=== PATIENT | female | born 1955 | race Caucasian/White ===

== ENCOUNTER 2017-09-13 08:36 | Emergency (ER) | payer BC ==
--- NOTE | 2017-09-13 08:56 | ED ---
Throat Pain/Nasal Congestion - HPI Summary HPI Summary: 62-year-old female presents with head injury 2 days ago. She states she tripped and struck her right side of her face. She states she feels like her jaw is dislocated. She relocated she felt a pop. States since then she is having jaw pain feels like her jaw is a little off center. She denies any loose teeth or fractured teeth. She denies any pain with eye movement. She has had bruising below her eyes and on her jaw. She denies any loss consciousness. She denies any nausea vomiting. She did admit to some dizziness that has resolved. He still has a mild headache. She denies any neck pain. She has abrasions to her knee and her hand. She is full range of motion of her knee and hand. She denies any other injury. - History of Current Complaint Chief Complaint: EDHeadInjury Time Seen by Provider: 09/13/17 08:47 - Allergies/Home Medications Allergies/Adverse Reactions: Allergies Allergy/AdvReac Type Severity Reaction Status Date / Time No Known Allergies Allergy Verified 09/13/17 08:37 PMH/Surg Hx/FS Hx/Imm Hx Endocrine/Hematology History: Denies: Hx Anticoagulant Therapy, Hx Diabetes Cardiovascular History: Denies: Hx Coronary Artery Disease, Hx Hypertension, Hx Pacemaker/ICD Respiratory History: Denies: Hx Asthma, Hx Chronic Obstructive Pulmonary Disease (COPD) History: Denies: Hx Renal Disease Musculoskeletal History: Reports: Hx Arthritis - LOW BACK, KNEE, SHOULDER Sensory History: Denies: Hx Hearing Aid Neurological History: Reports: Hx Migraine - Hx OF, LAST x WAS SUMMER 2012 Psychiatric History: Reports: Hx Anxiety - LOW BACK, Hx Substance Abuse - ETOH, SOBER X14 YEARS Denies: Hx Panic Disorder - Surgical History Surgery Procedure, Year, and Place: 1987 LEFT KNEE SCOPE FABY Hx Anesthesia Reactions: No Infectious Disease History: Yes Infectious Disease History: Denies: Traveled Outside the [place] in Last 30 Days - Family History Known Family History: Positive: Hypertension - Social History Alcohol Use: None Substance Use Type: Reports: None Hx Tobacco Use: Yes Smoking Status (MU): Never Smoked Tobacco Type: Cigars Amount Used/How Often: occasionally CIGAR Have You Smoked in the Last Year: Yes Review of Systems Negative: Fever Positive: Other - jaw pain Negative: Chest Pain Negative: Shortness Of Breath Positive: Headache All Other Systems Reviewed And Are Negative: Yes Physical Exam Triage Information Reviewed: Yes Vital Signs On Initial Exam: Initial Vitals Temp Pulse Resp BP Pulse Ox 98.2 F 74 16 128/60 97 09/13/17 08:39 09/13/17 08:39 09/13/17 08:39 09/13/17 08:39 09/13/17 08:39 Vital Signs Reviewed: Yes Appearance: Positive: Well-Appearing Skin: Positive: Warm, Dry Head/Face: Positive: Normal Head/Face Inspection Eyes: Positive: Normal, EOMI, DIANA, Conjunctiva Clear ENT: Positive: Normal ENT inspection, Pharynx normal, TMs normal, Other - tenderness right side jaw and infraorbital, full ROM jaw Dental: Positive: Other - no loose teeth. Negative: Dental Fracture @ Neck: Positive: Supple, Nontender, No Lymphadenopathy, Other: - nontender neck Respiratory/Lung Sounds: Positive: Clear to Auscultation, Breath Sounds Present Cardiovascular: Positive: Normal, RRR Abdomen Description: Positive: Nontender, Soft Bowel Sounds: Positive: Present Musculoskeletal: Positive: Normal Neurological: Positive: Sensory/Motor Intact, Alert, Oriented to Person Place, Time, CN Intact II-III Psychiatric: Positive: Normal Diagnostics - Vital Signs Vital Signs Temp Pulse Resp BP Pulse Ox 09/13/17 08:39 98.2 F 74 16 128/60 97 - Laboratory Lab Statement: Any lab studies that have been ordered have been reviewed, and results considered in the medical decision making process. - Radiology maxillary Xray Interpretation: No Acute Changes Radiology Interpretation Completed By: Radiologist EENT Course/Dx - Course Course Of Treatment: 62-year-old female presents with head injury 2 days ago. She states she tripped and struck her right side of her face. She states she feels like her jaw is dislocated. She relocated she felt a pop. States since then she is having jaw pain feels like her jaw is a little off center. She denies any loose teeth or fractured teeth. She denies any pain with eye movement. She has had bruising below her eyes and on her jaw. She denies any loss consciousness. She denies any nausea vomiting. She did admit to some dizziness that has resolved. He still has a mild headache. She denies any neck pain. She has abrasions to her knee and her hand. She is full range of motion of her knee and hand. She denies any other injury. On exam has full range of motion of jaw. Normal neuro exam. According to [place] CT rules does not need any head imaging. will get imaging of face. maxillaryfacial normal. will have follow up with dentist. will have eat soft foods. will have follow up with primary about head injury. patient understand and agrees with plan. - Differential Diagnoses Differential Diagnoses: Other - jaw dislocation, facial fracture, concussion - Diagnoses Provider Diagnoses: Fall, Head injury, Jaw pain Discharge - Sign-Out/Discharge Documenting (check all that apply): Discharge - Discharge Plan Condition: Good Disposition: HOME Patient Education Materials: Head Injury (ED), Temporomandibular Disorder (ED) Referrals: Katt Valdez MD [Primary Care Provider] - Additional Instructions: Place ice on area as needed Take Tylenol for headache every 6 hours Modify activities as tolerated Follow up with primary within 5 days Eat soft foods Follow up with dentist Avoid chewing gum Return to ED if develop vomiting, severe headache, change in behavior, or any new or worsening symptoms - Billing Disposition and Condition Condition: GOOD Disposition: HOME
--- NOTE | 2017-09-13 09:18 | RAD ---
HISTORY: Left facial injury COMPARISONS: None TECHNIQUE: Multiple contiguous axial CT scans were obtained of the face without intravenous contrast, with coronal and sagittal multiplanar reformations. FINDINGS: BONES: There is no displaced fracture or dislocation. The orbital rim is intact. The zygomatic arch is intact. The pterygoid plates are intact. 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 ORBITS: The globes are round. The optic nerves are symmetric. The extraocular musculature is normal. There is no post septal or intraconal inflammatory change. There is no retrobulbar hematoma. PARANASAL SINUSES: The nasal septum is deviated to the right with right-sided spurring. BRAIN AND SOFT TISSUE: Unremarkable. OTHER: None. IMPRESSION: NO FACIAL FRACTURE
--- OUTSIDE RECORDS SUMMARY | 2017-09-13 09:32 | XMS REPORT ---
:1955 External Reference #:[id number] Author Organization [facility] Address [address] [place] [address] Phone [phone] Care Team Providers Name Role Phone Katt Valdez MD Primary Care Physician Unavailable Payers Type Date Identification Numbers Payment Provider Subscriber Commercial Effective: Policy Number: BS Facets Zandra Appiah 2017 [id number] PayID: [id number] [address] [address] [place] [address] Problems Date Description Provider Status Onset: 02/14/2012 Hyperlipidemia Penelope Stone M.D., FACP Active Onset: 05/18/2016 Full thickness rotator cuff tear Natalie Estrada MD Active Onset: 03/03/2016 Closed fracture of phalanx of foot Natalie Estrada MD Active Onset: 03/03/2016 Disorder of shoulder Natalie Estrada MD Active Onset: 03/03/2016 Injury of shoulder region Natalie Estrada MD Active Family History Date Family Member(s) Problem(s) Comments General Diabetes General Leukemia Social History Type Date Description Comments Lives With Alone Occupation Currently Working ETOH Use Denies alcohol use Smoking Patient is a former smoker Exercise Type/Frequency Exercises sporadically Allergies, Adverse Reactions, Alerts Date Description Reaction Status Severity Comments 02/14/2012 NKDA active Medications Medication Date Status Form Strength Qnty SIG Indications Ordering Provider Ibuprofen Active Tablets 600mg 120tabs take 1 Dirk 018 tab by kemal Lopez M.D. every 8 hours for pain. Ibuprofen /0 Active Capsules 200mg 3 tabs q Unknown 000 am Diclofenac Hx Tablets DR 75mg 60tabs take 1 S46.101A Zaneb Sodium 016 - tablet MD Sean twice a 018 day with food [place]-3 CF /0 Hx Capsules 1000mg Unknown 000 - 018 Multi For Her 0 Hx Capsules 1 po qd Unknown 50+ 000 - 018 Medications Administered in Office Medication Date Status Form Strength Qnty SIG Indications Ordering Provider Triamcinolone 01/26/ Administered Injection Zaneb (Kenalog) 2015 MD Sean Immunizations CPT Code Status Date Vaccine Lot # [id number] Given 06/13/2012 Fluvirin Im 3Yrs And Older [id number] Given 02/10/2009 Tdap - Tetanus/Diptheria/Acellular Pertussis Vital Signs Date Vital Result Comment 09/03/2017 Height 73 inches 6'1" Weight 257.00 lb BP Systolic 124 mmHg BP Diastolic 64 mmHg Respiratory Rate 20 /min Body Temperature 98.4 F Pain Level 8 BMI (Body Mass Index) 33.9 kg/m2 05/18/2016 Height 73 inches 6'1" Weight 220.00 lb Respiratory Rate 20 /min Pain Level 2 BMI (Body Mass Index) 29.0 kg/m2 04/18/2016 Height 73 inches 6'1" Weight 220.00 lb Pain Level 7 BMI (Body Mass Index) 29.0 kg/m2 03/03/2016 Height 73 inches 6'1" Weight 220.00 lb Respiratory Rate 16 /min Pain Level 16 BMI (Body Mass Index) 29.0 kg/m2 01/27/2016 Height 73 inches 6'1" Weight 220.00 lb Pain Level 10 BMI (Body Mass Index) 29.0 kg/m2 10/28/2015 Height 73 inches 6'1" Weight 220.00 lb Respiratory Rate 16 /min Pain Level 10 BMI (Body Mass Index) 29.0 kg/m2 06/13/2012 Height 73 inches 6'1" Weight 235.25 lb Heart Rate 60 /min BP Systolic Sitting 120 mmHg BP Diastolic Sitting 60 mmHg BMI (Body Mass Index) 31.0 kg/m2 02/14/2012 Height 73 inches 6'1" Weight 222.50 lb Heart Rate 68 /min BP Systolic Sitting 130 mmHg BP Diastolic Sitting 68 mmHg BMI (Body Mass Index) 29.4 kg/m2 Results Test Date Test Result H/L Range Note Comp Metabolic Panel 10/21/2012 Sodium 138 mmol/L 133-145 Potassium 3.8 mmol/L 3.5-5.0 Chloride 106 mmol/L 101-111 Co2 Carbon Dioxide 28.0 mmol/L 22-32 Anion Gap 4.0 mmol/L 2-11 Glucose 102 mg/dL High 70-100 Blood Urea Nitrogen 18 mg/dL 6-24 Creatinine 0.90 mg/dL 0.50-1.40 BUN/Creatinine Ratio 20.0 8-20 Calcium 9.1 mg/dL 8.1-9.9 Total Protein 6.9 g/dL 6.2-8.1 Albumin 4.2 g/dL 3.6-5.4 Globulin 2.7 g/dL 2-4 Albumin/Globulin Ratio 1.6 1-3 Total Bilirubin 0.9 mg/dL 0.4-1.5 Alkaline Phosphatase 59 U/L 30-110 Alt 18 U/L 14-54 Ast 24 U/L 12-42 Egfr Non- 64.8 >60 Egfr 83.3 >60 1 Urinalysis 10/21/2012 Urine Color Yellow Urine Appearance Clear Urine Specific [place] 1.018 1.010-1.030 Urine Esterase Negative Negative Urine Nitrate Negative Negative Urine Urobilinogen Negative E.U./dL Negative Urine Protein Negative mg/dL Negative Urine pH 7.0 5-9 Urine Blood Negative Negative Urine Ketones Negative mg/dL Negative Urine Bilirubin Negative Negative Urine Glucose Negative mg/dL Negative Laboratory test finding 10/21/2012 Inr 0.80 Low 0.87-0.97 Activated Partial Thrombo Time 27.3 seconds 22.18-37.18 Vitamin D, 25 Hydroxy 02/20/2012 25-Hydroxy Vitamin D2 <4.0 ng/mL () 25-Hydroxy Vitamin D3 32 ng/mL () 25-Hydroxy Vitamin D Total 32 ng/mL () 2 Comp Metabolic Panel 02/20/2012 Sodium 139 mmol/L 135-145 Potassium 4.2 mmol/L 3.5-5.0 Chloride 108 mmol/L 101-111 Co2 (Carbon Dioxide) 26.0 mmol/L 22-32 Anion Gap 5.0 mmol/L 2-11 3 Glucose 91 mg/dL 70-100 BUN 12 mg/dL 6-24 Creatinine 0.8 mg/dL 0.50-1.40 One Over Creatinine 1.25 BUN/Creatinine Ratio 15.0 8-20 Calcium 9.2 mg/dL 8.1-9.9 Total Protein 6.4 GM/DL 6.2-8.1 Albumin 4.0 GM/DL 3.6-5.4 Globulin 2.4 GM/DL 2-4 Albumin/Globulin Ratio 1.7 1-3 Bilirubin Total 0.9 mg/dL 0.4-1.5 4 Alkaline Phosphatase 66 U/L 30-110 Alt (SGPT) 14 U/L 14-54 Ast (Sgot) 20 U/L 12-42 eGFR Non- 74.5 > 60 eGFR 95.8 > 60 5 Laboratory test finding 02/20/2012 TSH 0.33 MIU/ML Low 0.34-5.60 1 Because ethnic data is not always readily available, this report includes an eGFR for both -Americans and non- Americans. The National Kidney Disease Education Program (NKDEP) does not endorse the use of the MDRD equation for patients that are not between the ages of 18 and 70, are , have extremes of body size, muscle mass, or nutritional status, or are non- or non-. According to the National Kidney Foundation, irrespective of diagnosis, the stage of the disease is based on the level of kidney function: Stage Description GFR(mL/min/1.73 m(2)) 1 Kidney damage with normal or decreased GFR 90 2 Kidney damage with mild decrease in GFR 60-89 3 Moderate decrease in GFR 30-59 4 Severe decrease in GFR 15-29 5 Kidney failure <15 (or dialysis) 2 -- REFERENCE VALUE -- 25-HYDROXY D TOTAL (D2+D3) Optimum levels in the normal population are 25-80 Test Performed by: [facility] [place] [address] Marketing Systems Manager: Babak Garcia III, M.D. 3 Anion gap measurement may be of limited value in the presence of any alkalosis, especially in a combined acid base disorder. . 4 A metabolite of Naproxen, O-desmethylnaproxen, has been shown to interfere with the Jenalexiaik-Stagecoach method for measuring total bilirubin. Samples from patients who have taken Naproxen have shown spurious elevation in total bilirubin levels. 5 Because ethnic data is not always readily available, this report includes an eGFR for both -Americans and non- Americans. The National Kidney Disease Education Program (NKDEP) does not endorse the use of the MDRD equation for patients that are not between the ages of 18 and 70, are , have extremes of body size, muscle mass, or nutritional status, or are non- or non-. According to the National Kidney Foundation, irrespective of diagnosis, the stage of the disease is based on the level of kidney function: Stage Description GFR(mL/min/1.73 m(2)) 1 Kidney damage with normal or decreased GFR 90 2 Kidney damage with mild decrease in GFR 60-89 3 Moderate decrease in GFR 30-59 4 Severe decrease in GFR 15-29 5 Kidney failure <15 (or dialysis) Procedures Date CPT Code Description Status 01/27/2016 50813 Inject/Drain Joint/Bursa Major Completed 03/18/2012 04399 Rad Exam; Ankle Comp Completed 03/18/2012 65131 Rad Exam; Ankle Limited Completed 02/20/2012 Bone Mineral Density Test Completed 02/06/2012 53401 Rad Exam; Ankle Comp Completed 01/12/2012 43037 CLSD TX Distal Fib FX (Lateral Malleolus) w/o Completed manipulation 07/22/2009 Colonoscopy Completed 02/19/2009 Mammogram Completed 02/10/2009 10723 EKG Tracing & Interpretation Completed Encounters Type Date Location Provider CPT E/M Dx Office Visit 05/18/2016 [facility] [place] [address] S46.101A 2:15p C.M.A. M75.121 Office Visit 04/18/2016 10:00a [facility] [place] [address] S46.101A C.M.A. M75.41 M75.21 Office Visit 03/03/2016 9:30a [facility] [place] [address] S46.101A C.M.A. M75.41 S92.514A M75.21 Office Visit 01/27/2016 9:30a [facility] [place] [address] S46.101A C.M.A. M75.41 M75.21 Office Visit 10/28/2015 8:30a [facility] [place] [address] S46.101A C.M.AEstrada M75.41 M75.21 Office Visit 06/13/2012 4:00p [facility] Penelope Stone M.D., 14235 719.45 - [place] FACP 724.2 V04.81 Office Visit 05/13/2012 9:30a [facility], 44327 823.21 CRc [place] Office Visit 02/14/2012 3:20p [facility] Penelope Stone M.D., 20217 823.21 - [place] FACP 733.90 268.9 Office Visit 03/09/2009 1:15p DO Not Use [facility] Penelope Stone, 75742 272.4 M.D., FACP Office Visit 02/10/2009 11:30a DO Not Use [facility] Penelope Stone, 10358 V72.31 M.D., FACP 272.4 724.2 386.11 V06.1 Plan of Care 05/18/2016 - Natalie Estrada, MDS46.101A Unsp injury of musc/fasc/tend long hd bicep, right arm, initM75.121 Complete rotatr-cuff tear/ruptr of r shoulder, not traumaFollow up:Follow up: for pre op h and p
[2017-09-13 09:47] VITALS: BP 000/00
== END 2017-09-13 09:42 | disposition home or self-care (01) ==
LOC: ED 08:36
DX: S09.90XA Unspecified injury of head, initial encounter (principal); R68.84 Jaw pain; W18.09XA Striking against other object with subsequent fall, initial encounter; Y92.9 Unspecified place or not applicable; S80.219A Abrasion, unspecified knee, initial encounter; S60.519A Abrasion of unspecified hand, initial encounter; F17.290 Nicotine dependence, other tobacco product, uncomplicated; F41.9 Anxiety disorder, unspecified
CPT/HCPCS: 70486; 99282

== ENCOUNTER 2018-08-20 05:36 | Observation (INO) | payer BC ==
[~2018-08-20 05:36] MED LIST: Buffered Lidocaine 1% SYRIN* 1 ML/SYRINGE INTRADERM ONE
[2018-08-20] MEDS ORDERED: Dexamethasone IV* 4 MG/ML 1 ML (4 MG) IV SLOW PU ONE (06:00)
[2018-08-20] MEDS ORDERED: Famotidine IV* 10 MG/ML 2 ML (20 mg) IV ONE (06:00)
[2018-08-20] MEDS ORDERED: Lactated Ringers 1000 ML Bag* 1,000 ML IV SCH ×2 (06:00→09:00)
[2018-08-20] MEDS ORDERED: Thrombin 5,000 UNITS* 1 APPLIC KIT - topical use - TOPICAL ONE (06:32)
[2018-08-20] MEDS ORDERED: Lidocain 1% EPI 1:100,000 * 30 ML MDV ONE (06:32)
[2018-08-20] MEDS ORDERED: Bacitracin INJECTION* 50,000 UNITS ONE (06:32)
[2018-08-20] MEDS ORDERED: Famotidine IV* 10 MG/ML 2 ML (20 mg) ONE (06:33)
[2018-08-20] MEDS ORDERED: ceFAZolin 2 GM in NS PREMIX(*) 2 GM/100 ML BAG IVPB ONE (06:33)
[2018-08-20] MEDS ORDERED: Dexamethasone IV* 4 MG/ML 1 ML (4 MG) ONE (06:33)
[2018-08-20] MEDS ORDERED: fentaNYL* 50 MCG/ML 2 ML VIAL (100 MCG VIAL) ONE ×2 (07:11→08:41)
[2018-08-20] MEDS ORDERED: Midazolam* 1 MG/ML 2 ML VIAL (2 MG) ONE (07:12)
[2018-08-20] MEDS ORDERED: Ondansetron INJ* 2 MG/ML VIAL ONE ×2 (07:12→10:04)
[2018-08-20] MEDS ORDERED: Ketorolac INJ* 30 MG/ML 1 ML VIAL ONE (07:12)
[2018-08-20] MEDS ORDERED: Lidocaine 2% PF * 5 ML VIAL ONE (07:12)
[2018-08-20] MEDS ORDERED: Propofol* 10 MG/ML 20 ML BTL ONE (07:12)
[2018-08-20] MEDS ORDERED: Sugammadex * 200 MG/2 ML VIAL IV PUSH ONE (07:17)
[2018-08-20] MEDS ORDERED: Rocuronium* 10 MG/ML VIAL ONE ×2 (07:17→08:24)
[2018-08-20] MEDS ORDERED: Phenylephrine 40 MCG/ML SYRINGE ONE (08:17)
[2018-08-20] MEDS ORDERED: Naloxone* 0.4 MG/ML 1 ML VIAL IV PRN (08:29)
[2018-08-20] MEDS ORDERED: HYDROmorphone INJ1* 1 MG/ML SYRINGE IV PRN (08:29)
[2018-08-20] MEDS ORDERED: DiMENhydriNATE IV* 50 MG/ML VIAL IV PUSH PRN (08:29)
[2018-08-20] MEDS ORDERED: fentaNYL* 50 MCG/ML 2 ML VIAL (100 MCG VIAL) IV PRN (08:29)
[2018-08-20] MEDS ORDERED: Magnesium Hydroxide LIQ* 30 ML UDC PO PRN (08:51)
[2018-08-20] MEDS ORDERED: Ondansetron INJ* 2 MG/ML VIAL IV PRN (08:51)
[2018-08-20] MEDS ORDERED: Acetaminophen TAB* 325 MG PO PRN (08:51)
[2018-08-20] MEDS ORDERED: DiMENhydriNATE IV* 50 MG/ML VIAL ONE (09:04)
[2018-08-20] MEDS ORDERED: traMADol TAB* 50 MG PO PRN (09:12)
[2018-08-20] MEDS ORDERED: Acetaminophen IV 1GM/100ML * 100 ML ONE (09:16)
[2018-08-20] MEDS ORDERED: Gabapentin CAP(*) 300 MG PO SCH (21:00)
--- NOTE | 2018-08-21 07:37 | PN ---
Progress Note - Progress Note Date of Service: 08/21/18 SOAP: Subjective: [S/p L5-S1 right excision of synovial cyst POD #1 Feeling well this morning, tired. Reports minimal pain, has not needed pain medication RLE numbness persistent Ambulating independently Eating and drinking well Denies headache, nausea] Objective: [ Vital Signs: Temp Pulse Resp BP Pulse Ox 97.5 F 62 16 108/59 96 08/21/18 03:12 08/21/18 03:12 08/21/18 03:12 08/21/18 03:12 08/21/18 03:12 General: Alert, comfortable supine in bed Neuro: Motor intact. Sensation diminished to RLE Incision: Intact, no swelling, dressing replaced today] Assessment: [Satisfactory post-op] Plan: [1. Discharge home today 2. Discharge instructions discussed]
[2018-08-21 07:40] VITALS: BP 124/70
--- NOTE | 2018-08-22 11:34 | DS ---
DISCHARGE SUMMARY: DATE OF ADMISSION: 08/20/18 DATE OF DISCHARGE: 08/21/18 ATTENDING PHYSICIAN: Dr. Butler.* (DICTATED BY ANTHONY FARRAR) DISCHARGE DIAGNOSIS: L5-S1 right synovial cyst. SPECIAL PROCEDURE: L5-S1 right excision of synovial cyst. HOSPITAL COURSE: This 63-year-old female was seen in the office with a right- sided lumbar radiculopathy, numbness, tingling, and pain for the previous several weeks. MRI revealed large synovial cyst at that level on the right side. She was unable to manage symptoms with medication and activity modification. She therefore decided to undergo elective surgical intervention. On the day of admission, she was taken to surgery where under general anesthesia, an L5-S1 right excision of synovial cyst operation was carried out. Postoperatively, she briefly complained of headache, although this resolved by the time she arrived at short stay. She was able to ambulate independently and she was eating, drinking, and voiding without difficulty. She did not require any pain medications during her stay. The right lower extremity numbness and tingling was persistent, although pain has improved and she was able to ambulate well. On the first postoperative day, she was discharged home to the care of her daughter. DISCHARGE MEDICATIONS: None. DISCHARGE INSTRUCTIONS: Wound care and activity level were discussed with the patient and information on this was provided. She will be seen in office in approximately 10 days for followup. ANTHONY FARRAR [id number]/[facility] #: [id number] [facility] CENTERApple
--- NOTE | 2018-09-04 16:39 | OP ---
DATE OF OPERATION: 08/20/18 - ROOM #334 DATE OF : 57 SURGEON: Jorge Butler MD INTER COM INSTALLER: ANTHONY Travis ANESTHESIA: General. PRE-OP DIAGNOSIS: Lumbar synovial cyst, L5-S1 on the right. POST-OP DIAGNOSIS: Lumbar synovial cyst, L5-S1 on the right. OPERATIVE PROCEDURE: Lumbar laminectomy for excision of synovial cyst with microdissection, L5-S1 on the right. DESCRIPTION OF PROCEDURE: After satisfactory general anesthesia was obtained, the patient was placed on the operating table in the prone position with the chest supported on the Ahmet frame and the back slightly flexed. The lumbar region was then clipped, prepped and draped in a sterile manner for a lumbar laminectomy and a skin incision outlined from L5 to the sacrum. This incision was infiltrated with 1% Xylocaine with epinephrine, after which it was turned down sharply to the level of the lumbar fascia. The fascia was divided along the spinous processes of the L5 and upper sacrum and the paraspinal musculature stripped away from these posterior elements using the periosteal elevator and monopolar cautery. The L5-S1 interspace was identified by palpating the sacrum and moving up to the first movable interspace. Utilizing a Midas Trey drill, the inferior aspect of the L5 lamina and medial aspect of the facet complex was thinned out and a partial hemilaminectomy carried out at this level. This was carried superiorly until the attachment of ligamentum flavum was taken down. Inferiorly, a generous foraminotomy was carried out over the S1 nerve root. At this point of the procedure, the operating microscope was brought into the field and the remainder of the procedure done under microscopic visualization. Projecting into the spinal canal was noted to be a large cystic structure coming from the facet complex. Utilizing microdissection, this synovial cyst was dissected free from the dura to which it was somewhat adherent. Pieces of cyst and cyst wall were sent for permanent pathology. The cyst was decompressed out laterally until it was completely excised and the most superior and inferior extent of the cyst was also exposed and decompressed and removed. At the conclusion of the decompression, the S1 nerve root was noted to be free in its course. After assuring adequate hemostasis, the wound was thoroughly irrigated, after which a piece of Gelfoam was placed over the laminectomy defect. The fascia was then reapproximated with 0 Vicryl suture. The subcutaneous tissues were closed with 3-0 Vicryl suture and the skin closed with skin clips. The estimated blood loss was 100 cc, and the final sponge, padding, and needle counts were correct. The patient was taken to the recovery room, extubated and in stable condition. [id number]/[facility] #: [id number] MTDD
== END 2018-08-21 10:00 | disposition home or self-care (01) ==
LOC: OR 05:36 → SSU 08:51
PROVIDERS: ADMIT Neurological Surgery; ATTEND Neurological Surgery
DX: M71.38 Other bursal cyst, other site (principal); Z87.891 Personal history of nicotine dependence
CPT/HCPCS: 88304; A9270-GY; G0378; J0690; J1100; J1240; J1885; J2250; J2405; J2704; J3010